=== PATIENT | male | born 1995 | race Caucasian/White ===

== ENCOUNTER 2016-04-05 23:02 | Emergency (ER) | payer OTHER ==
[2016-04-05 23:10] VITALS: BP 132/77
--- NOTE | 2016-04-05 23:40 | ER Document Report ---
HPI - HPI Patient complains to provider of: left middle finger injury Pain Level: 3 Context: Patient is a 21-year-old male that comes emergency department for chief complaint of a laceration to his left middle finger, he states he nicked his finger on a table saw. He reports he is up-to-date on his tetanus within 5 years. He denies any other injuries. Injury happened over 12 hours ago but patient states he has had rebleeding. - DERM Skin Color: Normal Past Medical History - General Information source: Patient - Social History Smoking Status: Never Smoker Frequency of alcohol use: None Drug Abuse: None Lives with: Family Family History: Reviewed & Not Pertinent Patient has suicidal ideation: No Patient has homicidal ideation: No - Medical History Medical History: Negative Pulmonary Medical History: Denies: Hx Asthma Renal/ Medical History: Denies: Hx Peritoneal Dialysis Surgical Hx: Negative - Immunizations Hx Diphtheria, Pertussis, Tetanus Vaccination: No Vertical Provider Document - CONSTITUTIONAL General Appearance: WD/WN, No Apparent Distress - INFECTION CONTROL TRAVEL OUTSIDE OF THE [place] IN LAST 30 DAYS: No - HEENT HEENT: Atraumatic, Normocephalic - NECK Neck: Normal Inspection - RESPIRATORY Respiratory: Breath Sounds Normal, No Respiratory Distress O2 Sat by Pulse Oximetry: 95 - CARDIOVASCULAR Cardiovascular: Regular Rate, Regular Rhythm - GI/ABDOMEN Gastrointestinal: Abdomen Soft, Abdomen Non-Tender - MUSCULOSKELETAL/EXTREMETIES Musculoskeletal/Extremeties: MAEW, FROM, Tender - There is tenderness over the pad of the finger on the left third digit, there is a 1/2 quarter centimeter superficial laceration, no nail injury, normal capillary refill and sensation, normal exam otherwise - NEURO Level of Consciousness: Awake, Alert, Appropriate Motor/Sensory: No Motor Deficit, No Sensory Deficit - DERM Integumentary: Warm, Dry, No Rash Course - Vital Signs Vital signs: Temp Pulse Resp BP Pulse Ox 98.1 F 90 18 132/77 H 95 04/05/16 23:08 04/05/16 23:08 04/05/16 23:08 04/05/16 23:08 04/05/16 23:08 Procedures - Laceration/Wound Repair left third digit finger tip Wound length (cm): 0.5 Wound's Depth, Shape: Superficial, Linear Discharge - Discharge Clinical Impression: Finger laceration Qualifiers: Encounter type: initial encounter Qualified Code(s): S61.219A - Laceration without foreign body of unspecified finger without damage to nail, initial encounter Condition: Stable Disposition: HOME, SELF-CARE Additional Instructions: You can shower with the Dermabond in place, however avoid scrubbing to the area. Do not apply antibiotic ointment on the site as this will dissolve it, if in 5- 7 days the glue is still in place you can apply antibiotic ointment to dissolve this. Return immediately for any signs of infection including redness, swelling, etc.
== END 2016-04-05 23:46 | disposition home or self-care (01) ==
LOC: ER 23:02
DX: S61.213A Laceration without foreign body of left middle finger without damage to nail, initial encounter (principal); W29.8XXA Contact with other powered hand tools and household machinery, initial encounter; Y99.0 Civilian activity done for income or pay
CPT/HCPCS: 99282

== ENCOUNTER 2016-06-05 17:37 | Emergency (ER) | payer SELFPAY ==
[2016-06-05 17:44] VITALS: BP 127/72
[2016-06-05] MEDS ORDERED: ONDANSETRON 4 MG TAB.RAPDIS PO ONE (18:08)
[2016-06-05] MEDS ORDERED: NAPROXEN 250 MG TABLET PO ONE (18:08)
--- NOTE | 2016-06-05 18:11 | ER Document Report ---
HPI - HPI Patient complains to provider of: back pain and sinus congestion Pain Level: 3 Context: Patient is a 21-year-old male presents emergency Department complaining of nasal congestion for the past 2 days. Patient states that he's been taking allergy medication without any improvement in his symptoms. He denies any headache, purulent drainage, fever, throat, difficulty swallowing, cough. Patient denies any fevers. He also admits to chronic back pain. States that typically he takes Motrin at home for his symptoms minimal improvement. Patient works for a [employer] states his back pain is typically worse after her long work today. He's had this pain for 4 years. He has not been evaluated by a primary care physician for this problem. - DERM Skin Color: Normal Past Medical History - Social History Smoking Status: Current Every Day Smoker Family History: Reviewed & Not Pertinent Patient has suicidal ideation: No Patient has homicidal ideation: No Pulmonary Medical History: Denies: Hx Asthma Renal/ Medical History: Denies: Hx Peritoneal Dialysis - Immunizations Hx Diphtheria, Pertussis, Tetanus Vaccination: No Vertical Provider Document - CONSTITUTIONAL Agree With Documented VS: Yes Exam Limitations: No Limitations General Appearance: WD/WN, No Apparent Distress - INFECTION CONTROL TRAVEL OUTSIDE OF THE [place] IN LAST 30 DAYS: No - HEENT HEENT: Atraumatic, Normal ENT Exam, Normocephalic, PERRLA Notes: No evidence of retropharyngeal or peritonsillar abscess. No evidence of airway compromise. - NECK Neck: Normal Inspection. negative: Lymphadenopathy-Left, Lymphadenopathy-Right - RESPIRATORY Respiratory: Breath Sounds Normal, No Respiratory Distress, Chest Non-Tender. negative: Rales, Rhonchi, Wheezing O2 Sat by Pulse Oximetry: 100 - CARDIOVASCULAR Cardiovascular: Regular Rate, Regular Rhythm, No Murmur Pulses: Normal: Radial - BACK Back: Normal Inspection Notes: No evidence of spinous processes or paraspinous muscle tenderness. Patient has full range of motion. No gait abnormalities able to bear weight. - MUSCULOSKELETAL/EXTREMETIES Musculoskeletal/Extremeties: MAEW, FROM, Non-Tender, No Edema Notes: Strength 5 out of 5 in both upper and lower extremities. - NEURO Level of Consciousness: Awake, Alert, Appropriate Motor/Sensory: No Motor Deficit, No Sensory Deficit - DERM Integumentary: Warm, Dry, No Rash Course - Re-evaluation Re-evalutation: 06/05/16 18:11 The patient presents with low back pain without signs of spinal cord compression , cauda equina syndrome, infection, aneurysm, or other serious etiology. The patient is neurologically intact. Given the extremely low risk of these diagnoses further testing and evaluation for these possibilities does not appear to be indicated at this time. The patient has been instructed to return if the symptoms worsen or change in any way. Sinus congestion consistent with URI symptoms. Discussed with him medications to use [id number] for symptoms come follow-up with primary care as needed. - Vital Signs Vital signs: Temp Pulse Resp BP Pulse Ox 98.2 F 90 16 127/72 H 100 06/05/16 17:43 06/05/16 17:43 06/05/16 17:43 06/05/16 17:43 06/05/16 17:43 Discharge - Discharge Clinical Impression: Back pain, Sinus congestion Condition: Good Disposition: HOME, SELF-CARE Instructions: Viral Syndrome ([facility]) Additional Instructions: [id number] medications (store brand is cheaper): Pseudophedrine, Mucinex DM, Flonase LOW BACK PAIN: Three out of every four people will have an episode of disabling back pain during their lifetime. Most commonly the pain is due to straining of the muscles and ligaments in the low back. Usual treatment includes: (1) Rest on a firm surface. Avoid lying on your stomach. (2) Ice pack the painful area. After a few days, gentle heat may be used intermittently to relax the area, or ice packs can be continued. (3) Medication may be needed -- muscle relaxers and antiinflammatory medicines are commonly used. (4) As the back improves, exercises are prescribed to strengthen the back and abdominal muscles. Your doctor will advise you on the proper care for your back at each stage in your recovery. You may be better in a few days -- or healing may take several weeks. If new symptoms of a "herniated disc" (radiation of pain, numbness, or tingling down the back of the leg or weakness in the leg) occur, you should be re-examined. Further testing may be necessary. ICE PACKS: Apply ice packs frequently against the painful area. Many different schedules are recommended, such as "20 minutes on, 20 minutes off" or "one hour ice, two hours rest." If you need to work, you may need to go longer between ice treatments. You should plan to have the area ice packed AT LEAST one fourth of the time. The ice should be applied over the wrap, tape, or splint, or over a layer of cloth -- not directly against the skin. Some ice bags have a built-in cloth and can be put directly on the skin. WARM PACKS: After approximately two days, apply gentle heat (such as a heating pad or hot water bottle) for about 20 to 30 minutes about every two hours -- at least four times daily. Warmth and elevation will help you make a more rapid recovery , and will ease the pain considerably. Do not use HOT heat, and never apply heat for longer than 30 minutes. The continuous heat can invisibly damage skin and muscles -- even when no burn is seen on the surface. Damaged muscles can make you MORE sore. FOLLOW-UP CARE: If you have been referred to a physician for follow-up care, call the physician s office for an appointment as you were instructed or within the next two days. If you experience worsening or a significant change in your symptoms, notify the physician immediately or return to the Emergency Department at any time for re-evaluation. Prescriptions: Ondansetron HCl [Zofran] 4 mg PO Q6HP PRN #15 tablet PRN Reason: Naproxen 500 mg PO BID #20 tablet Forms: Return to Work Referrals: RACHEL ETIENNE MD [NO LOCAL MD] - Follow up in 1 week
== END 2016-06-05 18:17 | disposition home or self-care (01) ==
LOC: ER 17:37
DX: M54.9 Dorsalgia, unspecified (principal); R09.81 Nasal congestion; G89.29 Other chronic pain
CPT/HCPCS: 99283; S0119